=== PATIENT | female | born 1955 | race Caucasian/White ===

== ENCOUNTER 2019-07-27 11:27 | Emergency (ER) | payer OTHER ==
[2019-07-27 11:39] VITALS: BP 124/74
--- NOTE | 2019-07-27 12:05 | UC ---
Bite Injury/Animal HPI - HPI Summary HPI Summary: Patient is a 63-year-old female here with a bee sting. Patient was stung in the left neck roughly 1 hour ago by a bee. Patient's carbon stung by a bee before. Patient has mild redness to the bee sting site and some pain there. Patient has no shortness of breath, vomiting, diarrhea, rash. Medications reviewed - History of Current Complaint Chief Complaint: UCSkin Stated Complaint: BEE STING Time Seen by Provider: 07/27/19 11:57 Hx Obtained From: Patient Pain Intensity: 0 - Allergies/Home Medications Allergies/Adverse Reactions: Allergies Allergy/AdvReac Type Severity Reaction Status Date / Time amoxicillin Allergy Hives Verified 07/27/19 11:40 Penicillins Allergy Hives Verified 07/27/19 11:40 Home Medications: Home Medications NK [No Home Medications Reported] 07/27/19 [History Confirmed 07/27/19] PMH/Surg Hx/FS Hx/Imm Hx Previously Healthy: Yes - Surgical History Surgical History: Yes Surgery Procedure, Year, and Place: Partial thyroid removal d/t cyst 1998 - Family History Known Family History: Positive: Non-Contributory - Social History Alcohol Use: Rare Substance Use Type: None Smoking Status (MU): Never Smoked Tobacco Have You Smoked in the Last Year: No Review of Systems All Other Systems Reviewed And Are Negative: Yes Constitutional: Negative: Fever, Chills Skin: Negative: Rash ENT: Negative: Sore Throat, Nasal Discharge, Sinus Congestion Respiratory: Negative: Shortness Of Breath, Cough Cardiovascular: Negative: Palpitations, Chest Pain Gastrointestinal: Negative: Abdominal Pain, Vomiting, Diarrhea Physical Exam - Summary Physical Exam Summary: Vital Signs Reviewed: Yes A+Ox3, no distress Eyes: Conjunctiva Clear, PERRL. EOM intact and full ENT: Hearing grossly normal TM x 2 clear, moist, uvula midline, no exudate, no erythema Neck: Bee sting site located on the left anterior neck. Mild surrounding erythema. No stridor. Respiratory: Positive: No respiratory distress, No accessory muscle use + CTA throughout no w/r Cardiovascular: RRR nl s1, s2 no m/r CBT <2 sec abd soft + BS nt/nd no guarding, no distension Musculoskeletal Exam: AVELAR x 4 without difficulty Strength Intact, ROM Intact Neurological: Positive: Alert, + sensation throughout Psychological: Positive: Normal Response To Family Skin: no rash, no ecchymosis Vital Signs: Initial Vital Signs Temp 98.8 F 07/27/19 11:36 Pulse 82 07/27/19 11:36 Resp 16 07/27/19 11:36 BP 124/74 07/27/19 11:36 Pulse Ox 97 07/27/19 11:36 Bite Injury Course/Dx - Course Course Of Treatment: Patient is here after being stung by a bee. Patient has evidence of anaphylaxis. Patient's overall well-appearing. Patient was offered ibuprofen here but declined. Patient was educated on symptoms of anaphylaxis - Differential Dx/Diagnosis Provider Diagnosis: Bee sting Discharge ED - Sign-Out/Discharge Documenting (check all that apply): Patient Departure All imaging exams completed and their final reports reviewed: No Studies - Discharge Plan Condition: Stable Disposition: HOME Patient Education Materials: Insect Bite or Sting (ED) Referrals: No Primary Care Phys,NOPCP [Primary Care Provider] - Additional Instructions: Please take 600 mg of ibuprofen every 6 hours as needed for pain Please put ice on your bee sting Please call 911 if you have difficulty breathing, vomiting, diarrhea. - Billing Disposition and Condition Condition: STABLE Disposition: Home
== END 2019-07-27 12:08 | disposition home or self-care (01) ==
LOC: UCEAST 11:27
DX: T63.441A Toxic effect of venom of bees, accidental (unintentional), initial encounter (principal); Y92.9 Unspecified place or not applicable; Z88.0 Allergy status to penicillin
CPT/HCPCS: 99211; G0463